=== PATIENT | female | born 2000 | race Caucasian/White ===

== ENCOUNTER 2019-12-18 05:03 | Emergency (ER) | payer SELFPAY ==
[~2019-12-18] VITALS: Ht 167 cm; Wt 101.3 kg
[2019-12-18] MEDS ORDERED: LACTATED RINGERS 1,000 ML IV ONE (05:23)
--- NOTE | 2019-12-18 05:23 | ED Respiratory ---
General Stated Complaint: SOB,ANXIETY Source: patient Exam Limitations: no limitations (NELSON RAHMAN) History of Present Illness Date Seen by Provider: Dec 18, 2019 Time Seen by Provider: 05:15 Initial Comments Patient presents to ER by private conveyance with her significant other and chief complaint that around 3:00 this morning she was awoken with rapid heart rate, palpitations and shortness of breath that has been persistent. She has no history of coronary disease. She has had these same thing happen in the past around November 20, 2019 and at that time she was worked up and given proprano lol to use as needed. She has not used it. She does have a history of asthma but not having any wheezing. She doesn't smoke or use drugs. She does have a history of anxiety attacks and she thought that was what was happening tonight. She's not having any chest pain fevers, chills or cough. (NELSON RAHMAN) Allergies and Home Medications Allergies Coded Allergies: No Known Drug Allergies (Unverified , 12/18/19) Patient Home Medication List Home Medication List Reviewed: Yes (NELSON RAHMAN) Review of Systems Review of Systems Constitutional: No chills, No diaphoresis EENTM: No hearing loss, No ear pain Respiratory: No cough; short of breath; No wheezing Cardiovascular: see HPI; No chest pain; palpitations Gastrointestinal: No abdominal pain, No constipation, No diarrhea, No nausea, No vomiting Genitourinary: No discharge, No dysuria (NELSON RAHMAN) All Other Systems Reviewed Negative Unless Noted: Yes (NELSON RAHMAN) Past Uxfakla-Zqfqey-Nrwukg Hx Patient Social History Alcohol Use: Denies Use Recreational Drug Use: No Smoking Status: Never a Smoker Recent Foreign Travel: No Contact w/Someone Who Travel: No (NELSON RAHMAN) Smoking Status: Current Everyday Smoker (LUIGI RAZO MD) Physical Exam Vital Signs - First Documented 12/18/19 05:11 Temp 38.0 Pulse 126 Resp 20 B/P (MAP) 150/101 (117) Pulse Ox 99 O2 Delivery Room Air (LUIGI RAZO MD) Capillary Refill : (NELSON RAHMAN) Height: '" Weight: lbs. oz. kg; BMI Method: General Appearance: WD/WN, no apparent distress Eyes: Bilateral Eye Normal Inspection, Bilateral Eye PERRL, Bilateral Eye EOMI HEENT: PERRL/EOMI, normal ENT inspection, pharynx normal Neck: non-tender, full range of motion Respiratory: chest non-tender, lungs clear, normal breath sounds, no respiratory distress, no accessory muscle use Cardiovascular: normal peripheral pulses, regular rate, rhythm Extremities: normal inspection, no pedal edema, normal capillary refill Neurologic/Psychiatric: alert, oriented x 3, other (mildly anxious) Skin: normal color, warm/dry (NELSON RAHMAN) Progress/Results/Core Measures Suspected Sepsis SIRS Temperature: Pulse: Respiratory Rate: Laboratory Tests 12/18/19 05:38: White Blood Count 8.9 Blood Pressure / Mean: Laboratory Tests 12/18/19 05:38: Platelet Count 311 12/18/19 05:58: (NELSON RAHMAN) Results/Orders Lab Results Laboratory Tests Test 12/18/19 05:18 12/18/19 05:38 12/18/19 05:58 Range/Units Urine Color YELLOW Urine Clarity CLEAR Urine pH 6.0 5-9 Urine Specific [place] 1.015 L 1.016-1.022 Urine Protein NEGATIVE NEGATIVE Urine Glucose (UA) NEGATIVE NEGATIVE Urine Ketones NEGATIVE NEGATIVE Urine Nitrite NEGATIVE NEGATIVE Urine Bilirubin NEGATIVE NEGATIVE Urine Urobilinogen 0.2 < = 1.0 MG/DL Urine Leukocyte Esterase TRACE NEGATIVE Urine RBC (Auto) NEGATIVE NEGATIVE Urine RBC NONE /HPF Urine WBC 0-2 /HPF Urine Squamous Epithelial Cells 5-10 /HPF Urine Crystals NONE /LPF Urine Bacteria MODERATE H /HPF Urine Casts NONE /LPF Urine Mucus NEGATIVE /LPF Urine Culture Indicated NO Urine Opiates Screen NEGATIVE NEGATIVE Urine Oxycodone Screen NEGATIVE NEGATIVE Urine Methadone Screen NEGATIVE NEGATIVE Urine Propoxyphene Screen NEGATIVE NEGATIVE Urine Barbiturates Screen NEGATIVE NEGATIVE Ur Tricyclic Antidepressants Screen NEGATIVE NEGATIVE Urine Phencyclidine Screen NEGATIVE NEGATIVE Urine Amphetamines Screen NEGATIVE NEGATIVE Urine Methamphetamines Screen NEGATIVE NEGATIVE Urine Benzodiazepines Screen NEGATIVE NEGATIVE Urine Cocaine Screen NEGATIVE NEGATIVE Urine Cannabinoids Screen NEGATIVE NEGATIVE White Blood Count 8.9 4.3-11.0 10^3/uL Red Blood Count 4.33 L 4.35-5.85 10^6/uL Hemoglobin 11.6 11.5-16.0 G/DL Hematocrit 35 35-52 % Mean Corpuscular Volume 81 80-99 FL Mean Corpuscular Hemoglobin 27 25-34 PG Mean Corpuscular Hemoglobin Concent 33 32-36 G/DL Red Cell Distribution Width 16.8 H 10.0-14.5 % Platelet Count 311 130-400 10^3/uL Mean Platelet Volume 10.5 H 7.4-10.4 FL Neutrophils (%) (Auto) 74 42-75 % Lymphocytes (%) (Auto) 20 12-44 % Monocytes (%) (Auto) 5 0-12 % Eosinophils (%) (Auto) 1 0-10 % Basophils (%) (Auto) 0 0-10 % Neutrophils # (Auto) 6.6 1.8-7.8 X 10^3 Lymphocytes # (Auto) 1.8 1.0-4.0 X 10^3 Monocytes # (Auto) 0.5 0.0-1.0 X 10^3 Eosinophils # (Auto) 0.1 0.0-0.3 10^3/uL Basophils # (Auto) 0.0 0.0-0.1 10^3/uL Sodium Level 136 135-145 MMOL/L Potassium Level 3.6 3.6-5.0 MMOL/L Chloride Level 106 98-107 MMOL/L Carbon Dioxide Level 18 L 21-32 MMOL/L Anion Gap 12 5-14 MMOL/L Blood Urea Nitrogen 12 7-18 MG/DL Creatinine 0.73 0.60-1.30 MG/DL Estimat Glomerular Filtration Rate > 60 BUN/Creatinine Ratio 16 Glucose Level 133 H 70-105 MG/DL Calcium Level 9.1 8.5-10.1 MG/DL C-Reactive Protein High Sensitivity 0.34 0.00-0.50 MG/DL (LUIGI RAZO MD) Micro Results Microbiology 12/18/19 Influenza Types A,B Antigen (GAIL) - Final, Complete (LUIGI RAZO MD) My Orders Orders - LUIGI RAZO MD Influenza A And B Antigens (12/18/19 06:22) Acetaminophen Tablet (Tylenol Tablet) (12/18/19 06:30) (LUIGI RAZO MD) Medications Given in ED Current Medications Medications Dose Ordered Sig/Candida Route Start Time Stop Time Status Last Admin Dose Admin Acetaminophen 1,000 mg ONCE ONCE PO 12/18/19 06:30 12/18/19 06:31 DC 12/18/19 06:53 1,000 MG Hydroxyzine Pamoate 25 mg ONCE ONCE PO 12/18/19 05:30 12/18/19 05:31 DC 12/18/19 05:50 25 MG Lactated Ringer's 1,000 ml @ 0 mls/hr Q0M ONCE IV 12/18/19 05:23 12/18/19 05:27 DC 12/18/19 05:50 1,000 MLS/HR (LUIGI RAZO MD) Vital Signs/I&O 12/18/19 12/18/19 12/18/19 05:11 06:53 07:27 Temp 38.0 38.0 36.4 Pulse 126 96 Resp 20 20 B/P (MAP) 150/101 (117) 120/74 (117) Pulse Ox 99 99 O2 Delivery Room Air (LUIGI RAZO MD) Vital Signs/I&O Capillary Refill : (NELSON RAHMAN) Progress Note #1: Time: 05:31 Progress Note Urinalysis, bedside , drug screen, chest x-ray, EKG and basic labs to rule out significant reason for her persistent tachycardia for the past 2 hours. Anxiety attacks usually do not last 2 hours straight. We'll give her some Vistaril and a liter of lactated Ringer's over getting this workup. If we do not find any significant, dangerous reason for her tachycardia and shortness of breath then we can explore treating her anxiety. At that point we will give her a dose of her propranolol. Progress Note #2: Time: 06:08 Progress Note Patient is feeling much better after the Vistaril and about 500 cc of fluid her in. She says she's no longer short of breath and her heart rates down to about 100-105. Patient is still pending her CMP, UA and urine drug screen. She has about 500 cc of fluid left infusing through her IV. (NELSON RAHMAN) Progress Note : Time: 07:24 Progress Note Care of this patient was assumed from Dr. Rahman at shift change. An influenza screen was added as patient had mild fever. Temperature was 100.4. Influenza screen was negative. Patient was given Tylenol and completed her 1 L saline bolus. This completely resolved her symptoms. She denied any chest pain or shortness of breath. She had no pleuritic symptoms. Heart rate was around 100. Oxygen saturations remained stable. She denied any lower extremity symptoms and had no lower extremity edema, tenderness, or Homans sign. I believe her symptoms were likely caused by low-grade fever. There is no evidence of bacterial infection on her workup. Patient states she often gets a low-grade fever just prior to starting her menstrual cycle which should be starting any time now. I advised trying ibuprofen for management of premenstrual and menstrual syndromes. Patient was advised to quit smoking. (LUIGI RAZO MD) ECG Initial ECG Impression Date: Dec 18, 2019 Initial ECG Impression Time: 05:44 Initial ECG Rate: 122 Initial ECG Rhythm: S.Tach Initial ECG Intervals: Normal Initial ECG Impression: Normal, Nonspecific Changes Comment Sinus tachycardia without ST elevation or depression (NELSON RAHMAN) Diagnostic Imaging Diagonstic Imaging: Xray Plain Films/CT/US/NM/MRI: chest (1v) Comments No acute cardiopulmonary processes. Reviewed: Reviewed by Me (NELSON RAHMAN) Departure Impression Primary Impression: Febrile illness Additional Impressions: Anxiety Sinus tachycardia by electrocardiogram Disposition: 01 HOME, SELF-CARE Condition: Improved Departure-Patient Inst. Referrals: NO,LOCAL PHYSICIAN (PCP/Family) Primary Care Physician Patient Instructions: Fever, Adult (DC) Add. Discharge Instructions: Drink plenty of clear liquids. You may take Tylenol and/or ibuprofen to control fever. You may try taking 600 mg of ibuprofen every 6 hours as needed for management of your premenstrual and menstrual syndromes. If your symptoms worsen or do not resolve in the next couple of days, please return to the emergency room. Please follow-up with your primary care provider as soon as possible. Work toward completely quitting smoking as soon as possible. Work/School Note: Work Release Form Date Seen in the Emergency Department: Dec 18, 2019 Return to Work: Dec 20, 2019 Restrictions: Return-No Fever (24hrs) NELSON RAHMAN Dec 18, 2019 05:23 LUIGI RAZO MD Dec 18, 2019 07:29
[2019-12-18] MEDS ORDERED: hydrOXYzine (VISTARIL/ATARAX) 25 MG capsule/tablet PO ONE (05:30)
[2019-12-18 05:48] LABS: BASOPHILS % (AUTO) 0 % (0-10); EOSINOPHILS # (AUTO) 0.1 10^3/uL (0.0-0.3); EOSINOPHILS % (AUTO) 1 % (0-10); HEMATOCRIT 35 % (35-52); HEMOGLOBIN 11.6 G/DL (11.5-16.0); LYMPHOCYTES # (AUTO) 1.8 X 10^3 (1.0-4.0); LYMPHOCYTES % (AUTO) 20 % (12-44); MEAN CORPUSCULAR HEMOGLOBIN 27 PG (25-34); MEAN CORPUSCULAR HGB CONC 33 G/DL (32-36); MEAN CORPUSCULAR VOLUME 81 FL (80-99); MEAN PLATELET VOLUME 10.5 FL (7.4-10.4); MONOCYTES # (AUTO) 0.5 X 10^3 (0.0-1.0); MONOCYTES % (AUTO) 5 % (0-12); NEUTROPHILS # (AUTO) 6.6 X 10^3 (1.8-7.8); NEUTROPHILS % (AUTO) 74 % (42-75); PLATELET COUNT 311 10^3/uL (130-400); RED CELL DISTRIBUTION WIDTH 16.8 % (10.0-14.5); WHITE BLOOD COUNT 8.9 10^3/uL (4.3-11.0)
[2019-12-18 06:02] LABS: BILIRUBIN,URINE NEGATIVE (NEGATIVE); CLARITY,URINE CLEAR; COLOR,URINE YELLOW; GLUCOSE, URINE (UA) NEGATIVE (NEGATIVE); KETONES,URINE NEGATIVE (NEGATIVE); LEUKOCYTE ESTERASE ,URINE TRACE (NEGATIVE); NITRITE,URINE NEGATIVE (NEGATIVE); PROTEIN,URINE NEGATIVE (NEGATIVE)
[2019-12-18 06:19] LABS: AMPHETAMINE SCREEN, URINE NEGATIVE (NEGATIVE); BARBITURATE SCREEN URINE NEGATIVE (NEGATIVE); BENZODIAZEPINES SCREEN URINE NEGATIVE (NEGATIVE); CANNABINOID SCREEN, URINE NEGATIVE (NEGATIVE); COCAINE SCREEN URINE NEGATIVE (NEGATIVE); METHADONE STAT NEGATIVE (NEGATIVE); METHAMPHETAMINE SCREEN URINE S NEGATIVE (NEGATIVE); OPIATE SCREEN URINE NEGATIVE (NEGATIVE); OXYCODONE STAT NEGATIVE (NEGATIVE); PROPOXYPHENE STAT NEGATIVE (NEGATIVE); TRICYCLIC ANTIDEPRESSANTS SCRE NEGATIVE (NEGATIVE)
[2019-12-18 06:22] LABS: BACTERIA,URINE MODERATE /HPF; WBC,URINE 0-2 /HPF
[2019-12-18 06:22] LABS: BUN/CREATININE RATIO 16; CALCIUM 9.1 MG/DL (8.5-10.1); CARBON DIOXIDE 18 MMOL/L (21-32); CHLORIDE 106 MMOL/L (98-107); CREATININE SERUM 0.73 MG/DL (0.60-1.30); GFR ESTIMATED > 60; GLUCOSE 133 MG/DL (70-105); POTASSIUM 3.6 MMOL/L (3.6-5.0); SODIUM 136 MMOL/L (135-145)
[2019-12-18] MEDS ORDERED: ACETAMINOPHEN 500 MG TAB (TYLENOL) PO ONE (06:30)
--- NOTE | 2019-12-18 06:56 | NUR ---
REPORT GIVEN TO LONDON PETERSON
--- NOTE | 2019-12-18 06:59 | Diagnostic Imaging Report ---
INDICATION: Shortness of breath, cough and congestion. Frontal view of the chest was obtained with no prior studies for comparison. FINDINGS: The heart size is within normal limits. No effusion, infiltrate or pneumothorax. No mediastinal widening. IMPRESSION: 1. No acute disease in the chest. Dictated by: Dictated on workstation # [id number]
[2019-12-18 07:27] VITALS: BP 120/74
== END 2019-12-18 07:41 | disposition home or self-care (01) ==
LOC: ER 05:09
DX: R50.9 Fever, unspecified (principal); F41.9 Anxiety disorder, unspecified; R00.0 Tachycardia, unspecified; F17.200 Nicotine dependence, unspecified, uncomplicated
CPT/HCPCS: 36415; 71045; 80048; 80306; 81000; 84703; 85025; 86141; 87804; 93005; 96360